=== PATIENT | female | born 1975 | race Caucasian/White ===

== ENCOUNTER 2024-05-23 17:52 | Observation (INO) ==
--- NOTE | 2024-05-23 18:14 | Emergency Department Note ---
Impression & Plan Abdominal pain, Enterocolitis, Leukocytosis ED Provider Note NAME: SANJIV ZABALA AGE: 49 SEX: F : 1975 ARRIVES VIA: Walk-In INFORMANT: Patient ED PROVIDER(S): Guido Smith DO CHIEF COMPLAINT: Abdominal pain HPI: Patient is a 49-year-old female who presents ER for periumbilical abdominal pain. She has been getting this waxing and waning since this past Saturday. is present at bedside and notes that initially started late Saturday and has been constant but does wax and wane. She denies any nausea or vomiting. No dysuria, urgency, or frequency. No previous abdominal surgeries. She has never had anything like this before in the past. No other exacerbating or remitting factors. ADDITIONAL HISTORY OBTAINED: Per HPI Chronic Medical/Social Conditions Affecting Care: Per HPI PAST MEDICAL HISTORY:See Below PAST SURGICAL HISTORY:See Below FAMILY HISTORY:See Below SOCIAL HISTORY:See Below HOME MEDICATIONS:See Below ALLERGIES:See Below VITALS:See Below PHYSICAL EXAMINATION: GENERAL: Sitting up in bed, alert, well appearing, well nourished, no distress, non-toxic EYE EXAM: normal conjunctiva. PERRL and EOM's grossly intact. OROPHARYNX: mucous membranes are moist NECK: supple, no nuchal rigidity, no adenopathy, non-tender LUNGS: Clear to auscultation. Normal chest wall mechanics HEART: no murmurs, S1 normal and S2 normal ABDOMEN: abdomen soft, tender to palpation periumbilically, normo-active bowel sounds, no masses, no rebound or guarding. UPPER EXTREMITIES: upper extremities are grossly normal. LOWER EXTREMITIES: No pitting edema. NEURO EXAM: Normal sensorium, cranial nerves II-XII grossly intact, normal speech, no gross weakness of arms, no gross weakness of legs. MEDICAL DECISION MAKING: Patient is a 49-year-old female who presents ER for above-stated complaint. IV was established and blood work was obtained. Labs show mild leukocytosis of 13.8 thousand. No significant anemia. BMP along LFTs bilirubin was unremarkable. Lipase was normal. UA was clean. CT abdomen pelvis was obtained and showed inflammation of the bowel and concern for possible appendicitis. Discussed with general surgery been who evaluated the patient recommended admission to the hospitalist. Patient was ordered IV antibiotics. She was updated bedside. Please see the hospitalist note for further evaluation management treatment. Consults/Care Managements Discussions: Per [facility] Triage Nursing notes reviewed. Limited review of prior medical records performed Vital Signs: reviewed and remarkable for HTN Differential diagnosis: Differential diagnoses includes but is not limited to gastritis, peptic ulcer disease, GERD, gallbladder disease, pancreatitis, small bowel obstruction, appendicitis, diverticulitis, hernia, urinary tract infection, torsion, perforation, trauma, infectious. ER treatment provided: See below Diagnostics interpreted by me include EKG and cardiac monitoring as listed below: -Cardiac Monitoring: An order was placed for continuous cardiac monitoring. The monitor shows a rate of 80 with sinus rhythm. -ECG: Sinus rhythm rate 90 Normal axis No PVCs QTc [address]-T wave changes else in the inferior and lateral leads -Laboratory studies:Interpreted by me as stated above in MDM and shown below. Imaging studies: Xrays: As interpreted by me:none CTs show: CT abdomen pelvis per my preliminary interpretation showed no obvious bowel obstruction CT and pelvis as described by radiology in the MDM Procedures:none Critical Care: None Past Med/Surg History Problem List (Updated 05/23/24 @ 23:32 by Guido Smith DO) Leukocytosis (Acute) Abdominal pain (Acute) Enterocolitis (Acute) Hypertension with goal blood pressure less than 140/90 Surgical History No significant past surgical history Family History Grandfather Prostate cancer Sister Multiple sclerosis Mother Hypertension Father Diabetes Brother No problems noted. Son No problems noted. Daughter No problems noted. Denies family history of Ovarian cancer Myocardial infarction Breast cancer Colorectal cancer Social History Smoking Status: Never smoker Second Hand Exposure: No; Do You Dip or Chew Tobacco: No; Hx Alcohol Use: No Hx Substance Use: No Preferred Language: Nigerien Communication Ability: Effective Visual Impairment: No Limitations Hearing Ability: Normal Prizer Hand Required: No marital status: Current Living Situation: Spouse current occupational status: employed current occupation: [employer] How many Children do You have: 2 Feels Safe at Home: Yes Childhood Exposure to Second-Hand Smoke: No Diet: regular Diet Comment: regular caffeine: No during the past year weight has: remained stable Dental Care, Regularly: No Physical Activity Frequency: Daily Seatbelt Use: always Sunscreen Use: Yes Assistive Devices: None Allergies Allergies Allergy/AdvReac Type Severity Reaction Status Date / Time Penicillins Allergy Mild Unknown Verified 05/23/24 20:58 Home Meds Home Medications Medication Instructions Recorded Confirmed multivitamin (Daily Multi-Vitamin 1 tab PO QAM 05/31/23 05/23/24 tablet) ascorbic acid (vitamin C) 1,000 mg 2 g PO HS 12/30/23 05/23/24 tablet Elderberry Gummy 3,500 mg PO HS 05/23/24 05/23/24 lisinopril 30 mg tablet 30 mg PO QAM 05/23/24 05/23/24 Results & Data (ED) Vital Signs Vital Signs - 24 hr 05/23/24 18:02 05/23/24 18:30 05/23/24 18:31 Temperature 36.7 C Temperature Source Temporal Artery Scan Pulse Rate 84 80 85 Respiratory Rate 18 20 Blood Pressure 169/111 H Blood Pressure [Right Arm] Blood Pressure Mean 130 Blood Pressure Mean [Right Arm] Pulse Oximetry 99 100 Oxygen Delivery Method Room Air Room Air Sepsis Recent Fever Within 48 Hours No Sepsis New/Unexplained Change in Mental Status No Sepsis Action Taken by Nursing No Action Required 05/23/24 18:31 05/23/24 18:54 05/23/24 19:03 Temperature Temperature Source Pulse Rate 77 74 Respiratory Rate 16 20 Blood Pressure Blood Pressure [Right Arm] Blood Pressure Mean Blood Pressure Mean [Right Arm] Pulse Oximetry 98 98 Oxygen Delivery Method Room Air Room Air Room Air Sepsis Recent Fever Within 48 Hours Sepsis New/Unexplained Change in Mental Status Sepsis Action Taken by Nursing 05/23/24 19:12 05/23/24 19:24 05/23/24 19:28 Temperature Temperature Source Pulse Rate 75 76 Respiratory Rate 17 17 Blood Pressure Blood Pressure [Right Arm] 134/92 Blood Pressure Mean Blood Pressure Mean [Right Arm] 106 Pulse Oximetry 99 100 Oxygen Delivery Method Room Air Room Air Sepsis Recent Fever Within 48 Hours Sepsis New/Unexplained Change in Mental Status Sepsis Action Taken by Nursing 05/23/24 19:57 05/23/24 20:00 05/23/24 20:11 Temperature Temperature Source Pulse Rate 73 83 Respiratory Rate 20 21 Blood Pressure 139/95 Blood Pressure [Right Arm] Blood Pressure Mean 110 Blood Pressure Mean [Right Arm] Pulse Oximetry 98 100 Oxygen Delivery Method Room Air Room Air Sepsis Recent Fever Within 48 Hours Sepsis New/Unexplained Change in Mental Status Sepsis Action Taken by Nursing 05/23/24 20:24 05/23/24 20:38 05/23/24 21:00 Temperature Temperature Source Pulse Rate 79 82 Respiratory Rate 15 16 Blood Pressure 179/110 H Blood Pressure [Right Arm] Blood Pressure Mean 142 Blood Pressure Mean [Right Arm] Pulse Oximetry 100 100 Oxygen Delivery Method Room Air Room Air Sepsis Recent Fever Within 48 Hours Sepsis New/Unexplained Change in Mental Status Sepsis Action Taken by Nursing 05/23/24 21:05 Temperature Temperature Source Pulse Rate 87 Respiratory Rate 21 Blood Pressure Blood Pressure [Right Arm] Blood Pressure Mean Blood Pressure Mean [Right Arm] Pulse Oximetry 99 Oxygen Delivery Method Room Air Sepsis Recent Fever Within 48 Hours Sepsis New/Unexplained Change in Mental Status Sepsis Action Taken by Nursing Laboratory Data 05/23/24 18:26 05/23/24 18:26 Lab Results 05/23/24 05/23/24 Range/Units 18:20 18:26 WBC 13.87 H (4.8-10.8) K/ul RBC 4.66 (4.20-5.40) M/uL Hgb 13.6 (12.0-16.0) g/dl Hct 39.0 (37.0-47.0) % MCV 83.7 (80.0-100.0) fL MCH 29.2 (25.0-34.0) pg MCHC 34.9 (32.0-36.0) g/dL RDW Std Deviation 35.4 L (36.4-46.3) fL RDW Coeff of [place] 11.8 (11.5-14.5) % Plt Count 293 (130-400) K/uL MPV 10.4 (9.4-12.4) fL Immature Gran % (Auto) 0.3 % Neut % (Auto) 75.4 % Lymph % (Auto) 17.7 % [place] % (Auto) 5.3 % Eos % (Auto) 1.0 % Baso % (Auto) 0.3 % Neut # (Auto) 10.46 H (1.40-6.50) K/uL Lymph # (Auto) 2.46 (1.20-3.40) K/uL [place] # (Auto) 0.73 H (0.11-0.59) K/uL Eos # (Auto) 0.14 (0.00-0.50) K/uL Baso # (Auto) 0.04 (0.00-0.20) K/uL Immature Gran # (Auto) 0.04 (0.01-0.20) K/uL Sodium 136 (136-145) mmol/L Potassium 3.7 (3.5-5.1) mmol/L Chloride 104 (98-107) mmol/L Carbon Dioxide 25 (21-32) mmol/L Anion Gap 7 (3-11) BUN 14 (6-23) mg/dl Creatinine 0.68 (0.6-1.2) mg/dl Est Cr Clr Drug Dosing 98.4 ml/min eGFR 106.70 BUN/Creatinine Ratio 20.6 H (10-20) Glucose 91 (70-99(Fasting)) mg/dl Calcium 9.3 (8.6-10.3) mg/dl Total Bilirubin 0.4 (0.2-1.0) mg/dl AST 24 (13-39) U/L ALT 19 (7-52) U/L Alkaline Phosphatase 88 (34-104) U/L Total Protein 7.5 (6.0-8.3) gm/dl Albumin 4.6 (3.4-5.0) gm/dl Globulin 2.9 (2.5-4.0) gm/dl Albumin/Globulin Ratio 1.6 (0.9-2) Lipase 55 (11-82) U/L Urine Color Yellow Urine Appearance Clear (Clear) Urine pH 5.5 (4.5-7.5) Ur Specific [place] 1.025 (1.000-1.030) Urine Protein Negative (Negative) Urine Glucose (UA) Negative (Negative) Urine Ketones Negative (Negative) Urine Blood Negative (Negative) Urine Nitrite Negative (Negative) Urine Bilirubin Negative (Negative) Urine Urobilinogen Negative (Negative) Ur Leukocyte Esterase Negative (Negative) Administered Medications Parenteral Electrolytes (Plasma-Lyte A Ph 7.4) 1,000 mls @ 80 mls/hr IV .[id number] KARLOS Stop: 05/24/24 09:44 Last Admin: 05/23/24 23:06 Dose: 80 mls/hr Documented By: NIKKY Discontinued Medications Metronidazole (Flagyl) 500 mg in 100 mls @ 100 mls/hr IV NOW STA; Protocol Stop: 05/23/24 21:29 Last Infusion: 05/23/24 23:06 Dose: Infused Documented By: Admin: 05/23/24 21:40 Dose: 100 mls/hr Documented By: EH Ceftriaxone Sodium (Rocephin) 2,000 mg in 50 mls @ 100 mls/hr IV NOW STA Stop: 05/23/24 20:59 Last Infusion: 05/23/24 21:15 Dose: Infused Documented By: Admin: 05/23/24 20:40 Dose: 100 mls/hr Documented By: EH Ioversol (Optiray 320 100ml) 93 ml IV ONCE ONE Stop: 05/23/24 19:21 Last Admin: 05/23/24 19:20 Dose: 93 ml Documented By: DENNIS Imaging Data Radiologist's Impression: Abdomen/Pelvis CT 05/23/24 18:11 CT ABDOMEN and PELVIS with INTRAVENOUS CONTRAST HISTORY: Abdominal pain TECHNIQUE: CT abdomen and pelvis with contrast. IV CONTRAST: 100 mL of OMNIPAQUE 300 ENTERIC CONTRAST: Not Given COMPARISON: FINDINGS: LOWER CHEST: 4 mm pulmonary nodule in the right lung base (series 2, image 1). LIVER: No focal lesion identified. Hepatomegaly. GALLBLADDER/BILIARY: Unremarkable gallbladder. No abnormal biliary dilatation. SPLEEN: Unremarkable. PANCREAS: Unremarkable. ADRENALS: Unremarkable. KIDNEYS: Unremarkable. No stones or hydronephrosis identified. PERITONEUM/RETROPERITONEUM. No lymphadenopathy by size criteria. No aortic aneurysm. GASTROINTESTINAL: No obstruction. Multiple loops of small bowel demonstrate inflammatory changes with wall thickening. There is engorgement of the vasa recta. Cecum demonstrates inflammatory changes as well with circumferential wall thickening. The appendix appears prominent in caliber proximally near its base withapparent periappendiceal inflammation. REPRODUCTIVE: There is a left adnexal cyst measuring 2.8 cm. Prominent left periuterine vessels are present. BONES: No acute findings. Intraosseous hemangiomas of the spinal vertebral bodies. IMPRESSION: Findings suggesting enteritis. Inflammatory changes of the cecum with wall thickening representing a component of colitis. The appendix also appears inflamed and prominent in caliber proximally at its base. Mild acute appendicitis may be a consideration although this is confounded by the inflammatory changes of the small bowel and the large bowel. This apparent inflammatory change of the appendix may relate to enterocolitis instead. Please clinically correlate. Short interval follow-up imaging may be obtained in a few days to reassess or sooner if there is symptomatic worsening worrisome for acute appendicitis. Left adnexal cystic structure measuring 2.8 cm may represent a corpus luteal or a hemorrhagic cyst. Prominent left periuterine vessels may be seen with pelvic congestion syndrome. 4 mm pulmonary nodule in the right lung base. CT chest evaluation in 3 months would be recommended to reassess. Electronically signed by Juan Carlos Taylor 05-23-2024 7:56 PM Discharge Plan Visit Data Chief Complaint: Abdominal Pain Stated Complaint: ABD PAIN ED Provider: Guido Smith Discharge Problem: Abdominal pain, Enterocolitis, Leukocytosis Discharge Problem: Abdominal pain Qualifiers: Abdominal location: unspecified location Qualified Code(s): R10.9 - Unspecified abdominal pain Leukocytosis Qualifiers: Leukocytosis type: unspecified Qualified Code(s): D72.829 - Elevated white blood cell count, unspecified
[2024-05-23 18:43] LABS: Appearance Urine Clear (Clear); Bilirubin Urine Negative (Negative); Blood Urine Negative (Negative); Color Urine Yellow; Glucose Urine UA Negative (Negative); Ketones Urine Negative (Negative); Leukocyte Esterase Urine Negative (Negative); Nitrite Urine Negative (Negative); Protein Urine Negative (Negative); Specific Gravity Urine 1.025 (1.000-1.030); Urobilinogen Urine Negative (Negative); pH Urine 5.5 (4.5-7.5)
[2024-05-23 18:51] LABS: Basophils # (auto) 0.04 K/uL (0.00-0.20); Basophils % (auto) 0.3 %; Eosinophils # (auto) 0.14 K/uL (0.00-0.50); Hemoglobin 13.6 g/dl (12.0-16.0); Immature Granulocytes # (auto) 0.04 K/uL (0.01-0.20); Immature Granulocytes % (auto) 0.3 %; Lymphocytes # (auto) 2.46 K/uL (1.20-3.40); Lymphocytes % (auto) 17.7 %; Mean Corpuscular Hemoglobin 29.2 pg (25.0-34.0); Mean Corpuscular Hgb Conc 34.9 g/dL (32.0-36.0); Mean Corpuscular Volume 83.7 fL (80.0-100.0); Mean Platelet Volume 10.4 fL (9.4-12.4); Monocytes # (auto) 0.73 K/uL (0.11-0.59); Monocytes % (auto) 5.3 %; Neutrophils # (auto) 10.46 K/uL (1.40-6.50); Neutrophils % (auto) 75.4 %; Platelet Count 293 K/uL (130-400); RDW Coefficient of Variation 11.8 % (11.5-14.5); RDW Standard Deviation 35.4 fL (36.4-46.3); Red Blood Count 4.66 M/uL (4.20-5.40); White Blood Count 13.87 K/ul (4.8-10.8)
[2024-05-23 19:07] LABS: Albumin Globulin Ratio 1.6 (0.9-2); Albumin Level 4.6 gm/dl (3.4-5.0); BUN Creatinine Ratio 20.6 (10-20); Bilirubin,Total 0.4 mg/dl (0.2-1.0); Calcium 9.3 mg/dl (8.6-10.3); Creatinine Clr Calc Pharmacy 98.4 ml/min; Globulin 2.9 gm/dl (2.5-4.0); Potassium 3.7 mmol/L (3.5-5.1); Total Protein 7.5 gm/dl (6.0-8.3)
[2024-05-23] MEDS: OPTIRAY 320 100ml IV ONE (19:20)
--- NOTE | 2024-05-23 19:56 | CT Scan Report ---
CT ABDOMEN and PELVIS with INTRAVENOUS CONTRAST HISTORY: Abdominal pain TECHNIQUE: CT abdomen and pelvis with contrast. IV CONTRAST: 100 mL of OMNIPAQUE 300 ENTERIC CONTRAST: Not Given COMPARISON: FINDINGS: LOWER CHEST: 4 mm pulmonary nodule in the right lung base (series 2, image 1). LIVER: No focal lesion identified. Hepatomegaly. GALLBLADDER/BILIARY: Unremarkable gallbladder. No abnormal biliary dilatation. SPLEEN: Unremarkable. PANCREAS: Unremarkable. ADRENALS: Unremarkable. KIDNEYS: Unremarkable. No stones or hydronephrosis identified. PERITONEUM/RETROPERITONEUM. No lymphadenopathy by size criteria. No aortic aneurysm. GASTROINTESTINAL: No obstruction. Multiple loops of small bowel demonstrate inflammatory changes with wall thickening. There is engorgement of the vasa recta. Cecum demonstrates inflammatory changes as well with circumferential wall thickening. The appendix appears prominent in caliber proximally near its base withapparent periappendiceal inflammation. REPRODUCTIVE: There is a left adnexal cyst measuring 2.8 cm. Prominent left periuterine vessels are present. BONES: No acute findings. Intraosseous hemangiomas of the spinal vertebral bodies. IMPRESSION: Findings suggesting enteritis. Inflammatory changes of the cecum with wall thickening representing a component of colitis. The appendix also appears inflamed and prominent in caliber proximally at its base. Mild acute appendicitis may be a consideration although this is confounded by the inflammatory changes of the small bowel and the large bowel. This apparent inflammatory change of the appendix may relate to enterocolitis instead. Please clinically correlate. Short interval follow-up imaging may be obtained in a few days to reassess or sooner if there is symptomatic worsening worrisome for acute appendicitis. Left adnexal cystic structure measuring 2.8 cm may represent a corpus luteal or a hemorrhagic cyst. Prominent left periuterine vessels may be seen with pelvic congestion syndrome. 4 mm pulmonary nodule in the right lung base. CT chest evaluation in 3 months would be recommended to reassess. Electronically signed by Juan Carlos Taylor 05-23-2024 7:56 PM
--- NOTE | 2024-05-23 20:27 | History & Physical Report ---
Date of Service May 23, 2024 Assessment & Plan (1) Enterocolitis: Plan 49-year-old female PMHx HTN presenting for abdominal pain x 4 days. ED evaluation reveals leukocytosis 13.24, grossly WNL CMP with BUN/creatinine ratio 20.6, lipase 55, and UA negative for infection. CTAP findings for enterocolitis, appendix appearing inflamed some mild acute appendicitis considered, and left adnexal cystic structure measuring 2.8 cm, also a 4 mm pulmonary nodule in right lung base (CT chest 3 months). Provided with Flagyl and ceftriaxone in ED. #Enterocolitis/? Appendicitis 4 days of abdominal "cramping" and anorexia, no N/V/D/C. No significant history of abdominal conditions. Never had this happen before. Of note, patient still has regular menstrual cycles, states that this type of cramping does not feel similar to menstrual cramping. Findings on CTAP not certain for appendicitis, abdominal exam overall benign at admission. - CBC leukocytosis 13.84; CMP grossly WNL with exception ratio 20.6; lipase WNL; UA negative for infection; stool studies pending- CBC am - CTAP findings consistent with enterocolitis, appendix appearing inflamed; incidentally noted left adnexal cystic structure and 4 mm pulmonary nodule right lung base - Ceftriaxone + flagyl IV - continue - IVF plasmalyte @ 80 mL/hr - Diet clear liquidis for now, will place NPO at midnight IN CASE surgical interventions required - Sx consulted - No plans for immediate surgical intervention; manage with a ntibiotics and IVF - appreciate input + recs #HTN- Lisinopril Of note, CT findings identified 4mm pulmonary nodule R lung base-- CT chest 3 months recommended Dispo: Admit, med/sx VTE prophylaxis: SCDs This document was dictated utilizing [employer]. Please excuse any grammatical errors that may be secondary to use of this software. Admission and Anticipated Discharge Date Admission Date: 05/23/2024 History of Present Illness Chief Complaint: Abdominal pain Primary Care Provider: Lulu Black MD 49-year-old female PMHx HTN presenting for abdominal pain x 4 days. 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 States that the pain was initially around her umbilicus, but then seemed to have become diffuse waxing and waning in severity. Describes the pain as cramping and feeling as though someone is "twisting my insides." There is no pattern to the pain, states that it woke her up for multiple seconds and then resolve. Had abdominal pain that woke her throughout the night, mainly in the umbilicus region, and then was resolved by the time she awoke in the morning. Has had no N/V/D/C. Patient states that she decided to come for evaluation today because her suggested that she may have diverticulitis and she wanted to get antibiotics if needed and then go home. Patient states that the pain was not necessarily at its worst today, she just wanted to find answers. Did eat at [employer] the day of arrival, but not noticed that her symptoms were exacerbated by eating. Has had some anorexia over the past 4 days. Has not noticed that anything necessarily makes the pain better or worse. Never had this happen before. Otherwise no chest pain, shortness of breath, palpitations, numbness/tingling, LUTS, fever/chills, or syncope. Is feeling rather anxious about being in the hospital, and tearful at times. 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 ED evaluation reveals leukocytosis 13.24, grossly WNL CMP with BUN/creatinine ratio 20.6, lipase 55, and UA negative for infection. CTAP findings for enterocolitis, appendix appearing inflamed some mild acute appendicitis considered, and left adnexal cystic structure measuring 2.8 cm, also a 4 mm pulmonary nodule in right lung base (CT chest 3 months). Provided with Flagyl and ceftriaxone in ED. Please see Dr. Cordon's attestation for adjustments/additions to treatment plan. Allergies Allergy/AdvReac Type Severity Reaction Status Date / Time Penicillins Allergy Mild Unknown Verified 05/23/24 20:58 Home Medications Medication Instructions Recorded Confirmed Type multivitamin (Daily Multi-Vitamin 1 tab PO QAM 05/31/23 05/23/24 History tablet) ascorbic acid (vitamin C) 1,000 mg 2 g PO HS 12/30/23 05/23/24 History tablet Elderberry Gummy 3,500 mg PO HS 05/23/24 05/23/24 History lisinopril 30 mg tablet 30 mg PO QAM 05/23/24 05/23/24 History Past Med/Surg History Problem List (Updated 05/23/24 @ 23:32 by Guido Smith DO) Leukocytosis (Acute) Abdominal pain (Acute) Enterocolitis (Acute) Hypertension with goal blood pressure less than 140/90 Surgical History No significant past surgical history Family History Grandfather Prostate cancer Sister Multiple sclerosis Mother Hypertension Father Diabetes Brother No problems noted. Son No problems noted. Daughter No problems noted. 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 Beliefs That Will Affect Care: None marital status: Current Living Situation: Spouse current occupational status: employed current occupation: [employer] How many Children do You have: 2 Feels Safe at Home: Yes Safety Concerns: Feels Safe At This Time Childhood Exposure to Second-Hand Smoke: No Diet: regular Diet Comment: regular caffeine: No during the past year weight has: remained stable Dental Care, Regularly: No Physical Activity Frequency: Daily Seatbelt Use: always Sunscreen Use: Yes Assistive Devices: None Review of Systems Review of Systems: All systems reviewed & are unremarkable except as noted in Subjective Physical Exam Physical Exam: General: No acute distress Skin: Warm and dry, without rashes or lesions Head: Normocephalic, atraumatic Eyes: PERRL, conjunctivae clear, sclera non-icteric ENT: External ear and ear canal without swelling; nose atraumatic; good dentiti on, tongue normal appearance, pharynx normal Neck: Supple, no LAD; no JVD Cardio: RRR, no M/G/R, S1 and S2 normal Resp: No respiratory distress, Lungs CTA in all lobes bilaterally, no wheezes, rales, or rhonchi Abdomen: Soft, symmetric, mild tenderness RUQ; no guarding or rebound tenderness; no distention; No masses or hepatosplenomegaly; Bowel sounds normoactive MSK: No deformities; pulses palpable and equal; no edema. Neuro: Awake, alert; CN grossly intact Psych: Tearful, anxious; good judgement and insight. present in room at time of visit. Results & Data Results & Data Vital Signs (Past 12 Hours) Vital Signs Temp Pulse Resp BP BP Pulse Ox O2 Del Method 05/23/24 20:11 83 21 100 Room Air 05/23/24 20:00 139/95 05/23/24 19:57 73 20 98 Room Air 05/23/24 19:28 134/92 05/23/24 19:24 76 17 100 Room Air 05/23/24 19:12 75 17 99 Room Air 05/23/24 19:03 74 20 98 Room Air 05/23/24 18:54 77 16 98 Room Air 05/23/24 18:31 Room Air 05/23/24 18:31 85 05/23/24 18:30 80 20 100 Room Air 05/23/24 18:02 36.7 C 84 18 169/111 H 99 Room Air Laboratory Results 05/23/24 05/23/24 18:26 18:20 WBC 13.87 H RBC 4.66 Hgb 13.6 Hct 39.0 MCV 83.7 MCH 29.2 MCHC 34.9 RDW Std Deviation 35.4 L RDW Coeff of Zuhair 11.8 Plt Count 293 MPV 10.4 Immature Gran % (Auto) 0.3 Neut % (Auto) 75.4 Lymph % (Auto) 17.7 Bonner % (Auto) 5.3 Eos % (Auto) 1.0 Baso % (Auto) 0.3 Neut # (Auto) 10.46 H Lymph # (Auto) 2.46 Bonner # (Auto) 0.73 H Eos # (Auto) 0.14 Baso # (Auto) 0.04 Immature Gran # (Auto) 0.04 Sodium 136 Potassium 3.7 Chloride 104 Carbon Dioxide 25 Anion Gap 7 BUN 14 Creatinine 0.68 Est Cr Clr Drug Dosing 98.4 eGFR 106.70 BUN/Creatinine Ratio 20.6 H Glucose 91 Calcium 9.3 Total Bilirubin 0.4 AST 24 ALT 19 Alkaline Phosphatase 88 Total Protein 7.5 Albumin 4.6 Globulin 2.9 Albumin/Globulin Ratio 1.6 Lipase 55 Urine Color Yellow Urine Appearance Clear Urine pH 5.5 Ur Specific Mchenry 1.025 Urine Protein Negative Urine Glucose (UA) Negative Urine Ketones Negative Urine Blood Negative Urine Nitrite Negative Urine Bilirubin Negative Urine Urobilinogen Negative Ur Leukocyte Esterase Negative Diagnostic Findings Abdomen/Pelvis CT 05/23/24 18:11 CT ABDOMEN and PELVIS with INTRAVENOUS CONTRAST HISTORY: Abdominal pain TECHNIQUE: CT abdomen and pelvis with contrast. IV CONTRAST: 100 mL of OMNIPAQUE 300 ENTERIC CONTRAST: Not Given COMPARISON: FINDINGS: LOWER CHEST: 4 mm pulmonary nodule in the right lung base (series 2, image 1). LIVER: No focal lesion identified. Hepatomegaly. GALLBLADDER/BILIARY: Unremarkable gallbladder. No abnormal biliary dilatation. SPLEEN: Unremarkable. PANCREAS: Unremarkable. ADRENALS: Unremarkable. KIDNEYS: Unremarkable. No stones or hydronephrosis identified. PERITONEUM/RETROPERITONEUM. No lymphadenopathy by size criteria. No aortic aneurysm. GASTROINTESTINAL: No obstruction. Multiple loops of small bowel demonstrate inflammatory changes with wall thickening. There is engorgement of the vasa recta. Cecum demonstrates inflammatory changes as well with circumferential wall thickening. The appendix appears prominent in caliber proximally near its base withapparent periappendiceal inflammation. REPRODUCTIVE: There is a left adnexal cyst measuring 2.8 cm. Prominent left periuterine vessels are present. BONES: No acute findings. Intraosseous hemangiomas of the spinal vertebral bodies. IMPRESSION: Findings suggesting enteritis. Inflammatory changes of the cecum with wall thickening representing a component of colitis. The appendix also appears inflamed and prominent in caliber proximally at its base. Mild acute appendicitis may be a consideration although this is confounded by the inflammatory changes of the small bowel and the large bowel. This apparent inflammatory change of the appendix may relate to enterocolitis instead. Please clinically correlate. Short interval follow-up imaging may be obtained in a few days to reassess or sooner if there is symptomatic worsening worrisome for acute appendicitis. Left adnexal cystic structure measuring 2.8 cm may represent a corpus luteal or a hemorrhagic cyst. Prominent left periuterine vessels may be seen with pelvic congestion syndrome. 4 mm pulmonary nodule in the right lung base. CT chest evaluation in 3 months would be recommended to reassess. Electronically signed by Juan Carlos Taylor 05-23-2024 7:56 PM Code Status & VTE Plan Code Status Full Supervising Physician Co-Signing Physician Notes Attending addendum: I have physically seen this patient, have supervised the JO ANN's activities, and agree with the H&P unless as otherwise noted. Assessment and Plan: The patient is a 49-year-old female with past medical history including hypertension, who presents to the emergency department with abdominal pain x 4 days. Emergency department workup includes a neutrophilic leukocytosis of 13.24. CT scan with findings suggestive of enterocolitis, with appendix appearing inflamed and some mild acute appendicitis considered. There is a left adnexal cyst 2.8 cm, and a 4 mm pulmonary nodule in the right lung base with suggestion for followed by CT in 3 months. Patient was placed on ceftriaxone and Flagyl IV by the ED, and referred for evaluation to the [facility] for admission # Enterocolitis/question appendicitis- NPO CT scan abdomen and pelvis consistent with enterocolitis, and possible appendicitis. General surgery has evaluated the patient in the ED, and will follow during admission Continue ceftriaxone 2 g IV every 24 hours and Flagyl 500 mg IV every 8 hours Zofran 4 mg IV every 6 hours as needed Pantoprazole 40 mg IV daily IV fluids as noted Hypertension- Holding lisinopril PG Care Time/CCT Total # of Minutes Spent Total Time Spent with Patient: Total time spent is greater than 50% in coordination of care (as documented) at patient's floor/unit and/or counseling patient: Coding Level of Care Code 22620 INT INP/OBS CARE 3/75MIN Diagnoses Enterocolitis K52.9
[2024-05-23] MEDS: cefTRIAXone SODIUM 2,000 MG/50 ML BAG IV STA (20:40)
--- NOTE | 2024-05-23 20:57 | Surgery Consultation ---
Date of Consultation May 23, 2024 Assessment & Plan (1) Enterocolitis: I discussed with the treating emergency room physician and the patient is going to be admitted to the hospitalist from surgery perspective we recommend the following Based on the patient's CT scan it appears of the patient may have e nterocolitis although appendicitis is not entirely excluded. At the present time I do not feel taking the patient to the operating room for appendectomy is warranted given her relatively benign abdominal exam as well as the inflammatory changes noted in parts of her small bowel as well as her cecum Would recommend providing analgesics and antiemetics as needed Would hydrate with intravenous fluids Would not advance diet past clear liquids for the present time Recommend initiating intravenous antibioticsthe treating emergency room physician and will initiate Zosyn Would recommend following serial labs Will follow serial abdominal exams and see if patient has any findings indicative of appendicitis that has not yet declared itself Additional recommendations will be forthcoming based on her clinical course as it unfolds History of Present Illness Reason for Consultation: Enterocolitis with possible appendicitis History of Present Illness This is a 49-year-old female who presented to the emergency department secondary to abdominal pain. Patient notes that the abdominal pain has been present now for approximately 4 days. She said it originated in her lower abdomen but now the pain tends to come and go and move all over her abdomen with no 1 discrete area of pain. With her pain she has not had any nausea or vomiting. She denies any fevers, shakes, or chills. She denies any diarrhea. 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 She reports she has never had abdominal surgery. She denies any history of inflammatory bowel disease. She did have a colonoscopy ap proximately 2 years ago at which time she had polyps removed but the colonoscopy was otherwise unremarkable. Since arrival to the hospital the patient has had labs and imaging which I independent reviewed. A CT scan of the abdomen pelvis showed that patient had inflammation of the cecum as well as multiple loops of small bowel demonstrating inflammatory changes with wall thickening. Patient's appendix also appeared prominent with some periappendiceal inflammation as well. The interpreting radiologist noted that acute appendicitis could not be entirely excluded but with the remainder of the exam enterocolitis is also in the differential diagnosis. On the CT scan the patient also was noted to have a 4 mm pulmonary nodule at the right lung base. Labs include a CBC were white blood cell count was elevated 13.8. Hemoglobin and hematocrit as well as a platelet count were normal. Chemistry profile showed sodium and potassium as well as BUN and creatinine were normal. There is no elevation of LFTs or lipase and urinalysis was not indicative of infection. At the time my interview she is resting comfortably bed she is no distress Concerning past medical history she is treated for hypertension Concerning past surgical history she denies any previous surgeries Concerning social history she does not smoke Concerning family history she notes her father has a history of colon polyps and there is also family history of hypertension Allergies Allergy/AdvReac Type Severity Reaction Status Date / Time Penicillins Allergy Mild Unknown Verified 05/23/24 20:58 Home Medications Medication Instructions Recorded Confirmed Type multivitamin (Daily Multi-Vitamin 1 tab PO QAM 05/31/23 05/23/24 History tablet) ascorbic acid (vitamin C) 1,000 mg 2 g PO HS 12/30/23 05/23/24 History tablet Elderberry Gummy 3,500 mg PO HS 05/23/24 05/23/24 History lisinopril 30 mg tablet 30 mg PO QAM 05/23/24 05/23/24 History Patient History Surgical History No significant past surgical history Family History Grandfather Prostate cancer Sister Multiple sclerosis Mother Hypertension Father Diabetes Brother No problems noted. Son No problems noted. Daughter No problems noted. Denies family history of Ovarian cancer Myocardial infarction Breast cancer Colorectal cancer Social History Smoking Status: Never smoker Second Hand Exposure: No; Do You Dip or Chew Tobacco: No; Hx Alcohol Use: No Hx Substance Use: No Preferred Language: Vietnamese Communication Ability: Effective Visual Impairment: No Limitations Hearing Ability: Normal Diaper Folder Required: No Beliefs That Will Affect Care: None marital status: Current Living Situation: Spouse current occupational status: employed current occupation: [employer] How many Children do You have: 2 Feels Safe at Home: Yes Safety Concerns: Feels Safe At This Time Childhood Exposure to Second-Hand Smoke: No Diet: regular Diet Comment: regular caffeine: No during the past year weight has: remained stable Dental Care, Regularly: No Physical Activity Frequency: Daily Seatbelt Use: always Sunscreen Use: Yes Assistive Devices: None Review of Systems Review of Systems: All systems reviewed & are unremarkable except as noted in HPI & below Physical Exam Constitutional: WD/WN, vitals as above Eyes: no conjunctival abnormality ENMT: Ears: no hearing impairment and no external ear abnormality Mouth: no oropharynx abnormality Neck: trachea midline Respiratory: normal respiratory effort; no respiratory distress and no labored breathing Cardiovascular: Rate/Rhythm: regular rate and regular rhythm Gastrointestinal (Abdomen): At the time of my exam the patient's abdomen was soft and nondistended. There is no rigidity. There is no rebound tenderness or guarding. Patient did have only some slight generalized pain with palpation that did seem to be slightly worse in the right lower quadrant. Musculoskeletal: No calf tenderness Skin: no rashes Neurologic: moves all extremities Psychiatric: A+Ox3, euthymic affect Results & Data Vital Signs (Past 12 Hours) Vital Signs Temp Pulse Resp BP BP Pulse Ox O2 Del Method 05/23/24 20:11 83 21 100 Room Air 05/23/24 20:00 139/95 05/23/24 19:57 73 20 98 Room Air 05/23/24 19:28 134/92 05/23/24 19:24 76 17 100 Room Air 05/23/24 19:12 75 17 99 Room Air 05/23/24 19:03 74 20 98 Room Air 05/23/24 18:54 77 16 98 Room Air 05/23/24 18:31 Room Air 05/23/24 18:31 85 05/23/24 18:30 80 20 100 Room Air 05/23/24 18:02 36.7 C 84 18 169/111 H 99 Room Air PG Care Time/CCT Total # of Minutes Spent Total Time Spent with Patient: Total time spent is greater than 50% in coordination of care (as documented) at patient's floor/unit and/or counseling patient: Coding Level of Care Code 78876 IN/OBS CONSULT LVL 5,80M Diagnoses Enterocolitis K52.9
[2024-05-23] MEDS ORDERED: ONDANSETRON INJ 2 MG/ML 2 ML VIAL IV PRN (21:16)
[2024-05-23] MEDS: metroNIDAZOLE 500 MG/100 ML BAG IV STA (21:40)
[2024-05-23] MEDS ORDERED: MELATONIN 3 MG TAB PO PRN (22:55)
[2024-05-23] MEDS: PLASMA-LYTE A 1,000 ML IV SCH (23:06)
[2024-05-24] MEDS: metroNIDAZOLE 500 MG/100 ML BAG IV SCH (05:34)
[2024-05-24 06:19] LABS: Hematocrit (blood only) 35.7 % (37.0-47.0); Hemoglobin 12.6 g/dl (12.0-16.0); Mean Corpuscular Hemoglobin 29.4 pg (25.0-34.0); Mean Corpuscular Hgb Conc 35.3 g/dL (32.0-36.0); Mean Corpuscular Volume 83.2 fL (80.0-100.0); Mean Platelet Volume 10.1 fL (9.4-12.4); Platelet Count 250 K/uL (130-400); RDW Coefficient of Variation 11.7 % (11.5-14.5); RDW Standard Deviation 35.1 fL (36.4-46.3); Red Blood Count 4.29 M/uL (4.20-5.40); White Blood Count 9.43 K/ul (4.8-10.8)
[2024-05-24 06:28] LABS: BUN Creatinine Ratio 15.3 (10-20); Calcium 8.6 mg/dl (8.6-10.3); Creatinine Clr Calc Pharmacy 113.9 ml/min; Potassium 3.8 mmol/L (3.5-5.1)
[2024-05-24] MEDS ORDERED: ACETAMINOPHEN 325 MG TAB PO PRN (08:23)
[2024-05-24] MEDS: ACETAMINOPHEN 325 MG TAB ONE (08:32)
[2024-05-24] MEDS: lisinopril 10 MG TAB PO SCH (08:36)
--- NOTE | 2024-05-24 10:17 | Surgery Progress Note ---
Date of Service May 24, 2024 Assessment & Plan (1) Enterocolitis: Plan: Her CT scan images and results were personally viewed and interpreted by myself She does have some inflammation about the cecum and some dilation of her appendix At this point she has had pain for 5 days and does feel improved on IV antibiotics No plans for any surgical intervention at this time Would give her clear liquids today for lunch and if she tolerates these can be advanced to a low fiber diet for dinner Her leukocytosis has resolved and she has been afebrile, if she continues to improve clinically she can likely be discharged home tomorrow on p.o. antibiotics Will follow (2) Abdominal pain: Admission and Anticipated Discharge Date Admission Date: May 23, 2024 Subjective Patient seen and examined. States her abdominal pain is improved. Afebrile. Denies any nausea or vomiting. Review of Systems Constitutional: no fever and no chills Respiratory: no cough and no dyspnea Cardiovascular: no chest pain and no dyspnea on exertion Gastrointestinal: + abdominal pain; no nausea, no vomiting , no constipation and no diarrhea/loose stools Genitourinary: no dysuria and no urinary urgency Psychiatric: no behavioral changes and no depression Hematologic / Lymphatic: no easy bleeding and no easy bruising Physical Exam Constitutional: WD/WN, vitals as above Respiratory: normal respiratory effort, lungs clear to auscultation Cardiovascular: RRR, no murmur, no edema Gastrointestinal (Abdomen): Inspection/Auscultation: abdomen normal to inspection; abdomen not distended Percussion/Palpation: + abdomen tender (Mild right-sided) and abdomen soft; no guarding and no hernia Musculoskeletal: no cyanosis or clubbing, extremities motor strength 5/5 Skin: no rashes, warm and dry Psychiatric: A+Ox3, euthymic affect Results & Data Vital Signs (Past 12 Hours) Vital Signs Temp Pulse Pulse Resp BP Pulse Ox O2 Del Method 05/24/24 07:57 36.7 C 81 16 145/91 H 97 Room Air 05/23/24 22:35 36.7 C 81 18 134/79 98 Room Air 05/23/24 22:17 73 19 96 Room Air PG Care Time/CCT Total # of Minutes Spent Total Time Spent with Patient: Total time spent is greater than 50% in coordination of care (as documented) at patient's floor/unit and/or counseling patient: Coding Level of Care Code 42065 SUB INP/OBS CARE 04/25MIN Diagnoses Enterocolitis K52.9 Abdominal pain R10.9 Abdominal location: unspecified location (2) Abdominal pain Abdominal location: unspecified location Qualified Code(s): R10.9 - Unspecified abdominal pain
--- NOTE | 2024-05-24 12:10 | Hospitalist Progress Note ---
Date of Service May 24, 2024 Assessment & Plan (1) Enterocolitis: Plan 49-year-old female PMHx HTN presenting for abdominal pain x 4 days. ED evaluation reveals leukocytosis 13.24, grossly WNL CMP with BUN/creatinine ratio 20.6, lipase 55, and UA negative for infection. CTAP findings for enterocolitis, appendix appearing inflamed some mild acute appendicitis considered, and left adnexal cystic structure measuring 2.8 cm, also a 4 mm pulmonary nodule in right lung base (CT chest 3 months). Provided with Flagyl and ceftriaxone in ED. #Enterocolitis/? Appendicitis 4 days of abdominal "cramping" and anorexia, no N/V/D/C. No significant history of abdominal conditions. Never had this happen before. Of note, patient still has regular menstrual cycles, states that this type of cramping does not feel similar to menstrual cramping. Findings on CTAP not certain for appendicitis, abdominal exam overall benign at admission. - CBC leukocytosis 13.84; CMP grossly WNL with exception ratio 20.6; lipase WNL; UA negative for infection; stool studies pending- CBC am - CTAP findings consistent with enterocolitis, appendix appearing inflamed; incidentally noted left adnexal cystic structure and 4 mm pulmonary nodule right lung base - Ceftriaxone + flagyl IV - continue - IVF plasmalyte @ 80 mL/hr - Diet clear liquids - Sx consulted - No plans for surgical intervention; manage with antibiotics and IVF - recommend advancing to clear liquids, and if that is tolerated well can do a low fiber diet for dinner. #HTN - Lisinopril #Headache - Tylenol Q4h PRN Of note, CT findings identified 4mm pulmonary nodule R lung base-- CT chest 3 months recommended - put in discharge instructions Dispo: Anticipate d/c 05/25 VTE prophylaxis: SCDs Admission and Anticipated Discharge Date Admission Date: May 23, 2024 Dakotah Wilburn is sitting comfortably in bed during visit. She denies any pain. She did have a headache earlier, but Tylenol resolved it. She reports feeling much better. She tolerated PO intake with her pills this morning. Surgery was at the bedside to evaluate patient and do not feel surgery is indicated at this time. Review of Systems Constitutional: no fever, no chills and no fatigue Respiratory: no cough and no dyspnea Cardiovascular: no chest pain Gastrointestinal: no abdominal pain, no nausea, no vomiting, no pain with swallowing, no change in bowel habits, no constipation and no diarrhea/loose stools Genitourinary: no dysuria, no difficulty urinating, no urinary frequency, no urinary hesitancy and no urinary urgency Neurologic: no headache(s) (resolved with tylenol) Physical Exam Constitutional: WD/WN, vitals as above Eyes: PERRL, conjunctivae normal, anicteric sclerae Respiratory: normal respiratory effort, lungs clear to auscultation Cardiovascular: RRR, no murmur, no edema Gastrointestinal (Abdomen): normal bowel sounds, soft, nontender, no hepatosplenomegaly Skin: no rashes, warm and dry Psychiatric: A+Ox3, euthymic affect Results & Data Results & Data Vital Signs (Past 12 Hours) Vital Signs Temp Pulse Resp BP Pulse Ox O2 Del Method 05/24/24 07:57 36.7 C 81 16 145/91 H 97 Room Air Laboratory Results 05/24/24 05/23/24 05/23/24 Range/Units 05:55 18:26 18:20 WBC 9.43 13.87 H (4.8-10.8) K/ul RBC 4.29 4.66 (4.20-5.40) M/uL Hgb 12.6 13.6 (12.0-16.0) g/dl Hct 35.7 L 39.0 (37.0-47.0) % MCV 83.2 83.7 (80.0-100.0) fL MCH 29.4 29.2 (25.0-34.0) pg MCHC 35.3 34.9 (32.0-36.0) g/dL RDW Std Deviation 35.1 L 35.4 L (36.4-46.3) fL RDW Coeff of [place] 11.7 11.8 (11.5-14.5) % Plt Count 250 293 (130-400) K/uL MPV 10.1 10.4 (9.4-12.4) fL Immature Gran % (Auto) 0.3 % Neut % (Auto) 75.4 % Lymph % (Auto) 17.7 % [place] % (Auto) 5.3 % Eos % (Auto) 1.0 % Baso % (Auto) 0.3 % Neut # (Auto) 10.46 H (1.40-6.50) K/uL Lymph # (Auto) 2.46 (1.20-3.40) K/uL [place] # (Auto) 0.73 H (0.11-0.59) K/uL Eos # (Auto) 0.14 (0.00-0.50) K/uL Baso # (Auto) 0.04 (0.00-0.20) K/uL Immature Gran # (Auto) 0.04 (0.01-0.20) K/uL Sodium 138 136 (136-145) mmol/L Potassium 3.8 3.7 (3.5-5.1) mmol/L Chloride 106 104 (98-107) mmol/L Carbon Dioxide 26 25 (21-32) mmol/L Anion Gap 6 7 (3-11) BUN 9 14 (6-23) mg/dl Creatinine 0.59 L 0.68 (0.6-1.2) mg/dl Est Cr Clr Drug Dosing 113.9 98.4 ml/min eGFR 110.41 106.70 BUN/Creatinine Ratio 15.3 20.6 H (10-20) Glucose 95 91 (70-99(Fasting)) mg/dl Calcium 8.6 9.3 (8.6-10.3) mg/dl Total Bilirubin 0.4 (0.2-1.0) mg/dl AST 24 (13-39) U/L ALT 19 (7-52) U/L Alkaline Phosphatase 88 (34-104) U/L Total Protein 7.5 (6.0-8.3) gm/dl Albumin 4.6 (3.4-5.0) gm/dl Globulin 2.9 (2.5-4.0) gm/dl Albumin/Globulin Ratio 1.6 (0.9-2) Lipase 55 (11-82) U/L Urine Color Yellow Urine Appearance Clear (Clear) Urine pH 5.5 (4.5-7.5) Ur Specific [place] 1.025 (1.000-1.030) Urine Protein Negative (Negative) Urine Glucose (UA) Negative (Negative) Urine Ketones Negative (Negative) Urine Blood Negative (Negative) Urine Nitrite Negative (Negative) Urine Bilirubin Negative (Negative) Urine Urobilinogen Negative (Negative) Ur Leukocyte Esterase Negative (Negative) Diagnostic Findings Abdomen/Pelvis CT 05/23/24 18:11 CT ABDOMEN and PELVIS with INTRAVENOUS CONTRAST HISTORY: Abdominal pain TECHNIQUE: CT abdomen and pelvis with contrast. IV CONTRAST: 100 mL of OMNIPAQUE 300 ENTERIC CONTRAST: Not Given COMPARISON: FINDINGS: LOWER CHEST: 4 mm pulmonary nodule in the right lung base (series 2, image 1). LIVER: No focal lesion identified. Hepatomegaly. GALLBLADDER/BILIARY: Unremarkable gallbladder. No abnormal biliary dilatation. SPLEEN: Unremarkable. PANCREAS: Unremarkable. ADRENALS: Unremarkable. KIDNEYS: Unremarkable. No stones or hydronephrosis identified. PERITONEUM/RETROPERITONEUM. No lymphadenopathy by size criteria. No aortic aneurysm. GASTROINTESTINAL: No obstruction. Multiple loops of small bowel demonstrate inflammatory changes with wall thickening. There is engorgement of the vasa recta. Cecum demonstrates inflammatory changes as well with circumferential wall thickening. The appendix appears prominent in caliber proximally near its base withapparent periappendiceal inflammation. REPRODUCTIVE: There is a left adnexal cyst measuring 2.8 cm. Prominent left periuterine vessels are present. BONES: No acute findings. Intraosseous hemangiomas of the spinal vertebral bodies. IMPRESSION: Findings suggesting enteritis. Inflammatory changes of the cecum with wall thickening representing a component of colitis. The appendix also appears inflamed and prominent in caliber proximally at its base. Mild acute appendicitis may be a consideration although this is confounded by the inflammatory changes of the small bowel and the large bowel. This apparent inflammatory change of the appendix may relate to enterocolitis instead. Please clinically correlate. Short interval follow-up imaging may be obtained in a few days to reassess or sooner if there is symptomatic worsening worrisome for acute appendicitis. Left adnexal cystic structure measuring 2.8 cm may represent a corpus luteal or a hemorrhagic cyst. Prominent left periuterine vessels may be seen with pelvic congestion syndrome. 4 mm pulmonary nodule in the right lung base. CT chest evaluation in 3 months would be recommended to reassess. Electronically signed by Juan Carlos Taylor 05-23-2024 7:56 PM PG Care Time/CCT Total # of Minutes Spent Total Time Spent with Patient: Total time spent is greater than 50% in coordination of care (as documented) at patient's floor/unit and/or counseling patient: [place] [address] SUB INP/OBS CARE 2/35MIN Patient Type Established History Expanded Problem Focused Exam Expanded Problem Focused Medical Decision Making Moderate Complexity Diagnoses Enterocolitis K52.9
[2024-05-24] MEDS: cefTRIAXone SODIUM 2,000 MG/50 ML BAG IV SCH (20:55)
[2024-05-25 07:27] LABS: Hemoglobin 13.1 g/dl (12.0-16.0); Mean Corpuscular Hemoglobin 28.5 pg (25.0-34.0); Mean Corpuscular Hgb Conc 34.5 g/dL (32.0-36.0); Mean Corpuscular Volume 82.8 fL (80.0-100.0); Platelet Count 287 K/uL (130-400); RDW Coefficient of Variation 11.8 % (11.5-14.5); RDW Standard Deviation 35.7 fL (36.4-46.3); Red Blood Count 4.59 M/uL (4.20-5.40); White Blood Count 8.21 K/ul (4.8-10.8)
[2024-05-25 07:45] LABS: Appearance Urine Clear (Clear); Bilirubin Urine Negative (Negative); Blood Urine Negative (Negative); Color Urine Yellow; Glucose Urine UA Negative (Negative); Ketones Urine Trace (Negative); Leukocyte Esterase Urine Negative (Negative); Nitrite Urine Negative (Negative); Protein Urine Negative (Negative); Specific Gravity Urine 1.022 (1.000-1.030); Urobilinogen Urine Negative (Negative); pH Urine 6.5 (4.5-7.5)
[2024-05-25 07:53] VITALS: BP 134/82; RESP 12; TEMP 98.8; O2SAT 94
[2024-05-25 08:29] LABS: BUN Creatinine Ratio 11.4 (10-20); Calcium 8.9 mg/dl (8.6-10.3); Potassium 3.7 mmol/L (3.5-5.1)
--- NOTE | 2024-05-25 10:17 | Surgery Progress Note ---
Date of Service May 25, 2024 Assessment & Plan (1) Enterocolitis: Plan: She is much improved and without abdominal pain and tolerating a low fiber diet She can be discharged home today with 10 day course of PO ABX Can follow up with me 2-3 weeks Surgery will sign off at this time, please call with any questions or concerns (2) Abdominal pain: Admission and Anticipated Discharge Date Admission Date: May 23, 2024 Subjective Pt seen and examined. Denies abdominal pain. Afebrile. No N/V. Tolerating low fiber diet. Review of Systems Constitutional: no fever and no chills Respiratory: no cough and no dyspnea Cardiovascular: no chest pain and no dyspnea on exertion Gastrointestinal: no abdominal pain, no nausea, no vomiting, no constipation and no diarrhea/loose stools Genitourinary: no dysuria and no urinary urgency Psychiatric: no behavioral changes and no depression Hematologic / Lymphatic: no easy bleeding and no easy bruising Physical Exam Constitutional: WD/WN, vitals as above Respiratory: normal respiratory effort, lungs clear to auscultation Cardiovascular: RRR, no murmur, no edema Gastrointestinal (Abdomen): Inspection/Auscultation: abdomen normal to inspection; abdomen not distended Percussion/Palpation: abdomen soft; abdomen nontender, no guarding and no hernia Musculoskeletal: no cyanosis or clubbing, extremities motor strength 5/5 Skin: no rashes, warm and dry Psychiatric: A+Ox3, euthymic affect Results & Data Vital Signs (Past 12 Hours) Vital Signs Temp Pulse Resp BP Pulse Ox O2 Del Method 05/25/24 07:49 37.1 C 77 12 134/82 94 Room Air PG Care Time/CCT Total # of Minutes Spent Total Time Spent with Patient: Total time spent is greater than 50% in coordination of care (as documented) at patient's floor/unit and/or counseling patient: Coding Level of Care Code 05808 SUB INP/OBS CARE 04/25MIN Diagnoses Enterocolitis K52.9 Abdominal pain R10.9 Abdominal location: unspecified location (2) Abdominal pain Abdominal location: unspecified location Qualified Code(s): R10.9 - Unspecified abdominal pain
--- NOTE | 2024-05-25 11:04 | Discharge Summary ---
Discharge Summary Date of Service May 25, 2024 Principal Dx & Hospital Course #1 = Principal Diagnosis (1) Enterocolitis: Plan 49-year-old female PMHx HTN presenting for abdominal pain x 4 days. ED evaluation reveals leukocytosis 13.24, grossly WNL CMP with BUN/creatinine ratio 20.6, lipase 55, and UA negative for infection. #Enterocolitis/ Appendicitis 4 days of abdominal "cramping" and anorexia, no N/V/D/C. No significant history of abdominal conditions. Never had this happen before. Of note, patient still has regular menstrual cycles, states that this type of cramping does not feel similar to menstrual cramping. Findings on CTAP not certain for appendicitis, abdominal exam overall benign at admission. CBC w/ resolution of leukocytosis. BMP stable CTAP - enterocolitis, appendix appearing inflamed, incidentally noted left adnexal cystic structure & 4mm pulmonary nodule right lung base Rocephin and Flagyl inpatient --> transition to Cipro and Flagyl BID additional 10 days per surgery recommendations. Follow up w/ Dr. Holcomb in outpatient clinic 2-3 weeks Diet advanced to low fiber - continue for 4 weeks outpatient #HTN- Lisinopril Of note, CT findings identified 4mm pulmonary nodule R lung base-- CT chest 3 months recommended Discharged home 05/25. Admission HPI Per Admitting Provider 49-year-old female PMHx HTN presenting for abdominal pain x 4 days. Symptoms started waxing and waning approximately 4 days INSURANCE FOLLOW UP REPRESENTATIVE. States that the pain was initially around her umbilicus, but then seemed to have become diffuse waxing and waning in severity. Describes the pain as cramping and feeling as though someone is "twisting my insides." There is no pattern to the pain, states that it woke her up for multiple seconds and then resolve. Had abdominal pain that woke her throughout the night, mainly in the umbilicus region, and then was resolved by the time she awoke in the morning. Has had no N/V/D/C. Patient s tates that she decided to come for evaluation today because her suggested that she may have diverticulitis and she wanted to get antibiotics if needed and then go home. Patient states that the pain was not necessarily at its worst today, she just wanted to find answers. Did eat at [employer] the day of arrival, but not noticed that her symptoms were exacerbated by eating. Has had some anorexia over the past 4 days. Has not noticed that anything necessarily makes the pain better or worse. Never had this happen before. Otherwise no chest pain, shortness of breath, palpitations, numbness/tingling, LUTS, fever/chills, or syncope. Is feeling rather anxious about being in the hospital, and tearful at times. 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 ED evaluation reveals leukocytosis 13.24, grossly WNL CMP with BUN/creatinine ratio 20.6, lipase 55, and UA negative for infection. CTAP findings for enterocolitis, appendix appearing inflamed some mild acute appendicitis considered, and left adnexal cystic structure measuring 2.8 cm, also a 4 mm pulmonary nodule in right lung base (CT chest 3 months). Provided with Flagyl and ceftriaxone in ED. Please see Dr. Cordon's attestation for adjustments/additions to treatment plan. Discharge Exam Constitutional WD/WN, vitals as above Eyes PERRL, conjunctivae normal, anicteric sclerae Respiratory breathing unlabored Cardiovascular well perfused Musculoskeletal moves all extremities Psychiatric A+Ox3, euthymic affect Discharge Plan Discharge Items Patient Disposition: Home - Self-Care Reason For Visit: COLITIS,APPENDICITIS Discharge Diagnosis: Enterocolitis Activity: Resume your previous activity Non-emergency contact: Primary Care Provider Call non-emergency contact if: you have any medication questions, your symptoms worsen, your pain is not controlled and you have a fever Follow-up/Referrals: Lulu Black MD [Primary Care Provider] - 05/29/24 9:00 am Giuseppe Holcomb DO [Physician] - (You may call to schedule follow up in the office in 2 weeks) Diet: Low Fiber Addtl Attending Provider Instructions: Mere Ge, You were recently hospitalized for abdominal pain and were found to have enterocolitis. The surgeon saw you while hospitalized and did not feel you had appendicitis. You were treated with antibiotics and your symptoms improved. Please see recommendations below regarding your discharge. 1. Please take Ciprofloxacin twice daily and Metronidazole twice daily for 10 days. 2. Please follow up with Dr. Holcomb in 2-3 weeks, if you do not hear anything from his office regarding an appointment by 05/27, please call. His office number is above., 3. Please continue on a low fiber diet for 4 weeks. 4. Please follow up with your PCP within 1-2 weeks of discharge. - a 4mm nodule was seen in your right lung and it is recommended a repeat chest CT in 3 months to re-evaluate this. Please discuss this with your PCP. 5. You may resume the remainder of your medications. If you develop any severe abdominal pain, nausea, vomiting, dizziness, chest pain, or shortness of breath please report back to the ER for further care. Sincerely, Lindsey Cadet PA-C Pending Studies at Discharge: No Stand-Alone Forms: My [facility] [place], Smoking Cessation Medications and DC Order Prescriptions: New ciprofloxacin HCl 500 mg tablet 500 mg PO BID Qty: 20 0RF metronidazole 500 mg tablet 500 mg PO BID 10 Days Qty: 20 0RF Continued multivitamin [Daily Multi-Vitamin] Tablet 1 tab PO QAM ascorbic acid (vitamin C) 1,000 mg tablet 2 g PO HS lisinopril 30 mg tablet 30 mg PO QAM Elderberry Gummy 3,500 mg PO HS Rx Instructions: PER PT Discharge Orders: Discharge Order (Routine); Ordered 05/25/24 Ordered By: Lindsey Castellon/Other Patient Handouts: Low-Fiber Diet Admission Data Admit Date/Time: 05/23/24 21:10 Attending Provider: Popeye Haider Admit Provider: Rosalino Cordon Primary Care Provider: Lulu Black Other Providers: Giuseppe Holcomb Other Interventions: Discharge Summary Assessment (RN) Last Done: 05/25/24 11:41 Hospital Stay Data Consultations 05/23/24 20:06 Consult General Surgery Stat ED Decision to Admit Stat Diagnostic Imagining Performed 05/23/24 18:11 CT abd pelvis IV con only Stat Pending Results Patient Have Any Pending Studies at Discharge: No Discharge Instructions Given to Patient (Per Discharging Provider) Ms. Ge, You were recently hospitalized for abdominal pain and were found to have enterocolitis. The surgeon saw you while hospitalized and did not feel you had appendicitis. You were treated with antibiotics and your symptoms improved. Please see recommendations below regarding your discharge. 1. Please take Ciprofloxacin twice daily and Metronidazole twice daily for 10 days. 2. Please follow up with Dr. Holcomb in 2-3 weeks, if you do not hear anything from his office regarding an appointment by 05/27, please call. His office number is above., 3. Please continue on a low fiber diet for 4 weeks. 4. Please follow up with your PCP within 1-2 weeks of discharge. - a 4mm nodule was seen in your right lung and it is recommended a repeat chest CT in 3 months to re-evaluate this. Please discuss this with your PCP. 5. You may resume the remainder of your medications. If you develop any severe abdominal pain, nausea, vomiting, dizziness, chest pain, or shortness of breath please report back to the ER for further care. Sincerely, Lindsey Cadet PA-C Supervising Physician Co-Signing Physician Notes I personally saw and examined the patient. I independently reviewed the labs, EKG, imaging, problem list, medication list. I verified all orozco points and agree with Lindsey Cadet PA-C with the following exceptions and/or additions: None Total Time Total Time Spent Total Time Spent (In Minutes): 45 Total Time Includes: Examination of the Patient, Discharge Planning, Medication Reconciliation and Communication With Other Providers Coding Level of Care Code 04941 INP/OBS DISCH >30 MIN Diagnoses Enterocolitis K52.9
[2024-05-25 11:43] VITALS: PULSE 75
== END 2024-05-25 12:45 | disposition home or self-care (01) | DRG 392 ==
LOC: ED 17:52 → 3W 21:10 → SUATTDRO 21:10 → INTOOBSV 21:10 → 3W 05-24 03:48